=== PATIENT | male | born 1960 | race Caucasian/White ===

== ENCOUNTER → 2020-11-07 | Outpatient (CLI) | payer BC | END | disposition home or self-care (01) | LOC: LAB SHORT 14:22 → PLD 14:22 | DX: D22.5 Melanocytic nevi of trunk (principal); D22.39 Melanocytic nevi of other parts of face | CPT/HCPCS: 88305 ==

== ENCOUNTER 2022-10-16 19:35 | Observation (INO) | payer BC ==
[~2022-10-16] VITALS: Ht 177.8 cm; Wt 113.0 kg
[2022-10-16 21:14] LABS: BASOPHILS ABSOLUTE AUTO 0.03 K/mm3 (0.00-0.23); BASOPHILS PERCENT AUTO 0 % (0-2); EOSINOPHILS ABSOLUTE AUTO 0.03 K/mm3 (0.00-0.68); EOSINOPHILS PERCENT AUTO 0 % (0-6); Hemoglobin 14.2 g/dL (13.5-17.5); IMMATURE GRAN ABSOLUTE AUTO 0.04 K/mm3 (0.00-0.10); IMMATURE GRAN PERCENT AUTO 0 % (0-1); LYMPHOCYTES ABSOLUTE AUTO 1.22 K/mm3 (0.84-5.20); LYMPHOCYTES PERCENT AUTO 9 % (21-46); MONOCYTES ABSOLUTE AUTO 0.79 K/mm3 (0.16-1.47); MONOCYTES PERCENT AUTO 6 % (4-13); Mean Corpuscular HGB 31.5 pg (26.0-34.0); Mean Corpuscular HGB Conc 34.6 g/dL (31.5-36.5); Mean Corpuscular Volume 91 fL (80-100); Mean Platelet Volume 9.2 fL (9.1-12.4); NEUTROPHILS ABSOLUTE AUTO 10.86 K/mm3 (1.96-9.15); NEUTROPHILS PERCENT AUTO 84 % (41-73); Platelet Count 202 K/mm3 (150-400); RDW Coefficient Variation 12.7 % (11.7-14.2); RDW Standard Deviation 42.6 fL (35.1-46.3); Red Blood Cell Count 4.51 M/mm3 (4.30-5.90); White Blood Cell Count 12.97 K/mm3 (4.00-11.30)
[2022-10-16 21:40] LABS: Albumin, Blood 3.6 g/dL (3.4-5.0); Albumin/Globulin Ratio 0.9 (0.8-1.8); Bilirubin, Total 0.4 mg/dL (0.1-1.0); Bun/Creatinine Ratio 11.1 (12.0-20.0); Calcium, Blood 9.3 mg/dL (8.5-10.1); Creatinine, Blood 1.35 mg/dL (0.60-1.20); Potassium, Blood 4.1 mmol/L (3.5-5.5); Total Protein, Blood 7.6 g/dL (6.4-8.2)
[2022-10-16 22:43] LABS: Source, Urine Clean Catch
[2022-10-16 22:57] LABS: Appearance, Urine Clear (Clear); Bilirubin, Urine Neg (Neg); Blood, Urine Neg (Neg); Color, Urine Yellow (P-Yellow); Glucose Qualitative, Urine Neg (Neg); Ketones, Urine Neg (Neg); Leukocyte Esterase, Urine Neg (Neg); Nitrite, Urine Neg (Neg); Protein, Urine 2+ (Neg); Urobilinogen, Urine NORM (Normal)
[2022-10-16 23:30] LABS: Bacteria Rare /hpf; Mucus Light (0-Heavy); Red Blood Cells, Urine 0-2 /hpf (0-2); Squamous Epithelial Cells Rare /hpf (Few); White Blood Cells, Urine 0-2 /hpf (0-5)
[2022-10-17] MEDS ORDERED: LISI20 PO (00:16)
[2022-10-17] MEDS ORDERED: ROSU10TA PO (00:16)
[2022-10-17] MEDS ORDERED: Cymbalta20 MG PO (00:17)
--- NOTE | 2022-10-17 00:50 | NUR ---
PT ARRIVED TO ROOM 208 FROM ER. PT A/O, REP MILD DIZZINESS WHEN FIRST UP. ABD MILD DISTENDED FROM PT BASELINE, BT HYPO, PT REP PAIN IN RLQ. PT DENIES N/V AT THIS TIME. PT REP PAIN 4/10, MED FOR PAIN PER EMAR. PT ORIENTED TO ROOM/TX PLAN.
--- NOTE | 2022-10-17 06:31 | NUR ---
PT T-MAX 102.1 THIS AM; PT ASYMPTOMATIC, TYLENOL GIVEN W/SOME IMPROVEMENT. PAIN MGD W/0.5MG DILAUDID W/REP RELIEF. PT DENIED N/V. PT NPO FOR PLAN FOR SURGERY TODAY. IVF AND ABX CONT PER ORDERS.
--- NOTE | 2022-10-17 11:36 | NUR ---
PATIENT TO DAY SURGERY VIA [facility] WITH DAY SURGERY RN MICHAEL.
--- NOTE | 2022-10-17 11:57 | NUR ---
PT BROUGHT TO DAY SURGERY FOR PROCEDURE.
--- NOTE | 2022-10-17 13:10 | NUR ---
10/17/22 1310 Linda Dumont STARTED IN PRE OP.
--- NOTE | 2022-10-17 15:44 | NUR ---
PATIENT RETURNED TO ROOM, TRANSFERRED FORM [facility] TO BED W/ SLIDER SHEET, PATIENT TOLERATED WELL. X2 LAP SITES TO ABDOMEN WITH BELINDA DRAIN IN LOW/MID ABDOMEN, DRAINING SS FLUID. PATIENT REPORTS PAIN TO BE 4/10 AT THIS TIME, SPIKES W/ MOVEMENT TO 8/10. VSS, ON RA CURRENTLY, O2 SATS 95%. CALL LIGHT IN REACH.
--- NOTE | 2022-10-17 18:46 | NUR ---
NO ACUTE CHANGES SINCE RETURN TO ROOM. VSS ON RA. PAIN MANAGED WELL PER EMAR. PATIENT VOIDED W/O DIFFICULTY. TOELRATING JELLO AND WATER AT THIS TIME. USES CALL LIGHT APPROPRIATELY, IN REACH. WILL REPORT TO ONCOMING RN.
[2022-10-18 04:19] LABS: BASOPHILS ABSOLUTE AUTO 0.02 K/mm3 (0.00-0.23); BASOPHILS PERCENT AUTO 0 % (0-2); EOSINOPHILS PERCENT AUTO 0 % (0-6); Hematocrit 35.4 % (37.0-53.0); Hemoglobin 12.1 g/dL (13.5-17.5); IMMATURE GRAN ABSOLUTE AUTO 0.07 K/mm3 (0.00-0.10); IMMATURE GRAN PERCENT AUTO 0 % (0-1); LYMPHOCYTES ABSOLUTE AUTO 0.93 K/mm3 (0.84-5.20); LYMPHOCYTES PERCENT AUTO 6 % (21-46); MONOCYTES ABSOLUTE AUTO 0.56 K/mm3 (0.16-1.47); MONOCYTES PERCENT AUTO 4 % (4-13); Mean Corpuscular HGB 31.8 pg (26.0-34.0); Mean Corpuscular HGB Conc 34.2 g/dL (31.5-36.5); Mean Corpuscular Volume 93 fL (80-100); Mean Platelet Volume 9.2 fL (9.1-12.4); NEUTROPHILS PERCENT AUTO 90 % (41-73); Platelet Count 144 K/mm3 (150-400); RDW Standard Deviation 44.5 fL (35.1-46.3); White Blood Cell Count 15.68 K/mm3 (4.00-11.30)
--- NOTE | 2022-10-18 04:29 | NUR ---
POD1 FOR LAP APPY. LAP SITES C/D/I, BELINDA HAS HAD MINIMAL OUTPUT OF 30 MLS RED SANGUINEOUS FLUID. VSS. PT SLEPT WELL T/O THE NIGHT. VOIDING W/O DIFFICULTY, PASSING FLATTUS. NO BM'S. MEDICATED FOR PAIN WITH NORCO ONCE. PT TOLLERATING PO INTAKE W/O N/V. PLAN FOR PT TO CONTINUE IV ABX. THE PATIENT IS CURRENTLY SLEEPING, IN NO DISTRESS. CALL LIGHT IN REACH
[2022-10-18 05:27] LABS: Bun/Creatinine Ratio 14.2 (12.0-20.0); Calcium, Blood 8.3 mg/dL (8.5-10.1); Creatinine, Blood 1.2 mg/dL (0.60-1.20); Potassium, Blood 4.3 mmol/L (3.5-5.5)
[2022-10-18] MEDS ORDERED: AMOCLA875 PO (10:31)
[2022-10-18] MEDS ORDERED: HYDR1TAB94 PO (10:32)
--- NOTE | 2022-10-18 11:50 | NUR ---
[id number] DISCHARGED HOME WITH . PT AMBULATING IN ROOM UNASSISTED. REPORTS PAIN IS ADEQUATELY CONTROLLED. PT REPORTS UNDERSTANDING OF BELINDA CARE. WILLIS PPO FOOD AND FLUIDS WITHOUT NAUSEA
== END 2022-10-18 11:49 | disposition home or self-care (01) ==
LOC: ER 19:35 → SURS 19:36
PROVIDERS: Student in an Organized Health Care Education/Training Program; Surgery; ADMIT Surgery
PROC: 0DTJ4ZZ Resection of Appendix, Percutaneous Endoscopic Approach (ICD-10-PCS; principal; 2022-10-16)
DX: K35.30 Acute appendicitis with localized peritonitis, without perforation or gangrene (principal); I10 Essential (primary) hypertension; F17.200 Nicotine dependence, unspecified, uncomplicated; Z79.899 Other long term (current) drug therapy
CPT/HCPCS: 36415; 74176; 80048; 80053; 81001; 83690; 85025; 96365-59; 96367; 96375; 99285-25; A9270; J1100; J1170; J1885; J2250; J2405; J2543; J2704; J3010; J3480; J7030; J7120